=== PATIENT | female | born 1950 | race Caucasian/White ===

== ENCOUNTER 2018-04-25 18:10 | Inpatient (IN) ==
--- NOTE | 2018-04-25 19:06 | ED ---
HPI General Chief Complaint: Psychiatric Symptoms Stated Complaint: exparte/sherriff Time Seen by Provider: 04/25/18 18:33 History of Present Illness HPI Narrative: The patient was seen and examined in the presence of the nurse. This patient presents under a judges X forte act. She was sent here for psychiatric evaluation. She admits to being under a lot of stress but denies history of psychiatric problems and denies feeling suicidal. She denies any physical complaints or substance abuse issues. Symptom severity is mild. No alleviating factors. No exacerbating factors. Duration 3 weeks. She says her son has PTSD and he thought that maybe she had it but she denies having it. Related Data Home Medications Medication Instructions Recorded Confirmed No Known Home Medications 04/25/18 04/25/18 Allergies Allergy/AdvReac Type Severity Reaction Status Date / Time codeine Allergy Severe Difficulty Verified 04/25/18 18:33 Breathing erythromycin base Allergy Severe vomit Verified 04/25/18 18:33 ibuprofen Allergy Severe Joint Pain Verified 04/25/18 18:33 penicillin G Allergy Severe Rash Verified 04/25/18 18:33 ceflex Allergy Severe rash Uncoded 04/25/18 18:33 Review of Systems ROS: all other systems reviewed are negative PMFSH Medical History Medical History Patient denies medical problems (Acute) Surgical History Surgical History No history of previous surgery (Acute) Social History Social History Substance History: No History of Abuse Second Hand Smoke Exposure: No Smoking Status: Never smoker How Often Do You Have a Drink Containing Alcohol: Never Recent Travel in [facility] [[email or web address]] within the Last 8 Weeks: No Recent Out of Country Travel within the Last 8 Weeks: No Immunization History Tetanus Immunization: Unsure Exam Narrative Exam Narrative: GENERAL: Well-nourished, well-developed patient in no apparent distress. SKIN: Focused skin assessment reveals no rash and nodules. Skin is Warm and dry. HEAD: Atraumatic. Normocephalic. EYES: Pupils equal and round. No scleral icterus. No injection or drainage. ENT: No nasal bleeding or discharge. Mucous membranes pink and moist. NECK: Trachea midline. No JVD. CARDIOVASCULAR: Regular rate and rhythm. No murmur appreciated. RESPIRATORY: No accessory muscle use. Clear to auscultation. Breath sounds equal bilaterally. GASTROINTESTINAL: Abdomen soft, non-tender, nondistended. Hepatic and splenic margins not palpable. MUSCULOSKELETAL: No obvious deformities. No clubbing. No cyanosis. No edema. NEUROLOGICAL: Awake and alert. No obvious cranial nerve deficits. Motor grossly within normal limits. Normal speech. PSYCHIATRIC: Appropriate mood and affect; insight and judgment normal. Course Initial Documented Vital Signs Temperature 98.5 F 04/25/18 18:30 Pulse Rate 82 04/25/18 18:30 Respiratory Rate 18 04/25/18 18:30 Blood Pressure 176/79 H 04/25/18 18:30 Pulse Oximetry 99 04/25/18 18:30 Last Documented Vital Signs Temperature 98.5 F 04/25/18 18:30 Pulse Rate 82 04/25/18 18:30 Respiratory Rate 18 04/25/18 18:30 Blood Pressure 176/79 H 04/25/18 18:30 Pulse Oximetry 99 04/25/18 18:30 Medical Decision Making MDM Narrative Medical decision making narrative: 68-year-old female here for psychiatric evaluation under judges ex parte act. Denies physical problems. I have ordered medical clearance workup to include lab studies and alcohol intoxication. Psych screen has been ordered. Work appears negative. Patient is stable as can be made. Awaiting psychiatric evaluation for disposition. Medical Screen Exam Complete: Yes Emergency Medical Condition: Yes Lab Data Lab results reviewed: Yes I reviewed the patient's lab results. Lab results narrative: Labs are normal Result diagrams: 04/25/18 19:10 04/25/18 19:10 Lab Results 04/25/18 04/25/18 04/25/18 Range/Units 19:10 19:10 19:10 WBC 6.8 (4.0-11.0) th/mm3 RBC 4.95 (4.00-5.30) mil/mm3 Hgb 15.1 (11.6-15.3) gm/dL Hct 44.8 (35.0-46.0) % MCV 90.5 (80.0-100.0) fL MCH 30.5 (27.0-34.0) pg MCHC 33.7 (32.0-36.0) % RDW 13.9 (11.6-17.2) % Plt Count 260 (150-450) th/mm3 MPV 8.0 (7.0-11.0) fL Neut % (Auto) 48.2 (16.0-70.0) % Lymph % (Auto) 40.0 (9.0-44.0) % Fannin % (Auto) 7.5 (0.0-8.0) % Eos % (Auto) 3.4 (0.0-4.0) % Baso % (Auto) 0.9 (0.0-2.0) % Neut # (Auto) 3.3 (1.8-7.7) th/mm3 Lymph # (Auto) 2.7 (1.0-4.8) th/mm3 Fannin # (Auto) 0.5 (0.0-0.9) th/mm3 Eos # (Auto) 0.2 (0.0-0.4) th/mm3 Baso # (Auto) 0.1 (0.0-0.2) th/mm3 WBC Differential . Differential Comment Auto diff final Sodium 143 (136-145) meq/L Potassium 3.6 (3.5-5.1) meq/L Chloride 104 (98-107) meq/L Carbon Dioxide 31.8 (21.0-32.0) meq/L Anion Gap 7 (5-15) meq/L BUN 8 (7-18) mg/dL Creatinine 0.82 (0.50-1.00) mg/dL Estimated GFR 69 L (>89) mL/min Random Glucose 133 H (74-106) mg/dL Calcium 9.2 (8.5-10.1) mg/dL Total Bilirubin 0.2 (0.2-1.0) mg/dL AST 20 (15-37) U/L ALT 31 (10-53) U/L Alkaline Phosphatase 79 (45-117) U/L Total Protein 7.9 (6.4-8.2) g/dL Albumin 4.0 (3.4-5.0) g/dL TSH 2.380 (0.358-3.740) uIU/mL Urine Opiates Screen Neg (Neg) Ur Barbiturates Screen Neg (Neg) Ur Amphetamines Screen Neg (Neg) U Benzodiazepines Scrn Neg (Neg) Urine Cocaine Screen Neg (Neg) U Cannabinoids Screen Neg (Neg) Serum Alcohol Less than 3 (0-5) mg/dL Discharge Plan Discharge Disposition Patient Disposition: 30 Still Patient Discharge Details Diagnosis: Psychosis Physicians Team ED Provider: Cam Stewart Primary Care Provider: Primary Care Physici,No Rxs /Orders / Referrals /Forms Prescriptions: No Action No Known Home Medications RF: 0 Status ED Status: With Doctor
[2018-04-25 19:26] LABS: Baso # (Auto) 0.1 th/mm3 (0.0-0.2); Baso % (Auto) 0.9 % (0.0-2.0); Eos # (Auto) 0.2 th/mm3 (0.0-0.4); Eos % (Auto) 3.4 % (0.0-4.0); Hematocrit 44.8 % (35.0-46.0); Hemoglobin 15.1 gm/dL (11.6-15.3); Lymph # (Auto) 2.7 th/mm3 (1.0-4.8); Mean Corpuscular HGB Conc 33.7 % (32.0-36.0); Mean Corpuscular Hemoglobin 30.5 pg (27.0-34.0); Mean Corpuscular Volume 90.5 fL (80.0-100.0); Mono # (Auto) 0.5 th/mm3 (0.0-0.9); Mono % (Auto) 7.5 % (0.0-8.0); Neut # (Auto) 3.3 th/mm3 (1.8-7.7); Neut % (Auto) 48.2 % (16.0-70.0); Platelet Count 260 th/mm3 (150-450); Red Blood Count 4.95 mil/mm3 (4.00-5.30); Red Cell Distribution Width 13.9 % (11.6-17.2); White Blood Count 6.8 th/mm3 (4.0-11.0)
[2018-04-25 19:41] LABS: Amphetamine Screen,Urine Neg (Neg); Barbiturate Screen,Urine Neg (Neg); Cannabinoid Screen,Urine Neg (Neg); Cocaine Screen,Urine Neg (Neg)
[2018-04-25 19:42] LABS: Opiate Screen,Urine Neg (Neg)
[2018-04-25 20:03] LABS: Alanine Aminotransferase 31 U/L (10-53)
[2018-04-25 20:07] LABS: Anion Gap 7 meq/L (5-15); Aspartate Aminotransferase 20 U/L (15-37); Blood Urea Nitrogen 8 mg/dL (7-18); Calcium 9.2 mg/dL (8.5-10.1); Carbon Dioxide 31.8 meq/L (21.0-32.0); Chloride 104 meq/L (98-107); Glomerular Filtration Rate 69 mL/min (>89); Glucose,Random 133 mg/dL (74-106); Potassium 3.6 meq/L (3.5-5.1); Sodium 143 meq/L (136-145)
[2018-04-25 20:12] LABS: Alkaline Phosphatase 79 U/L (45-117); Total Protein 7.9 g/dL (6.4-8.2)
[2018-04-26] MEDS ORDERED: Acetaminophen 325 MG Tablet PO PRN (16:30)
[2018-04-26] MEDS ORDERED: Aluminum/Magnesium/Simethacone Susp 30 ML UDC PO PRN (16:30)
[2018-04-26] MEDS ORDERED: LORazepam 0.5 MG Tablet PO PRN (16:30)
[2018-04-26] MEDS ORDERED: Haloperidol Inj 5 MG/ML Ampul IM ONE (16:41)
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
--- NOTE | 2018-04-26 19:19 | CT ---
EXAM DATE: 04/26/2018 6:15 PM EST AGE/SEX: 68 years / Female INDICATIONS: Altered mental status. CLINICAL DATA: This is the patient's initial encounter. Patient reports that signs and symptoms have been present for 1 day and indicates a pain score of 0/10. MEDICAL/SURGICAL HISTORY: None. None. RADIATION DOSE: 56.35 CTDI (mGy) COMPARISON: No prior exams available for comparison. TECHNIQUE: CT of the head without contrast. Using automated exposure control and adjustment of the mA and/or kV according to patient size, radiation dose was kept as low as reasonably achievable to ob tain optimal diagnostic quality images. DICOM format image data is available electronically for revi ew and comparison. FINDINGS: Cerebrum: The ventricles are normal for age. No evidence of midline shift, mass lesion, hemorrhage or acute infarction. No extraaxial fluid collections are seen. Posterior Fossa: The cerebellum and brainstem are intact. The 4th ventricle is midline. The cerebe llopontine angle is unremarkable. Extracranial: The visualized portion of the orbits is intact. Skull: Subcutaneous oval smooth margin mass in the right lateral occipital region measuring 1.9 cm co ntaining some internal calcification. The calvaria is intact. No evidence of skull fracture. CONCLUSION: 1. No acute findings in the brain. 2. Smooth margin subcutaneous mass right occipital region with some internal calcification. . Electronically signed by: Francisco Macedo MD 04/26/2018 7:17 PM EST
[2018-04-26] MEDS ORDERED: Haloperidol Inj 5 MG/ML Ampul IM SCH (21:00)
[2018-04-26] MEDS: Haloperidol Inj 5 MG/ML Ampul IM SCH (22:32)
[2018-04-27 08:20] LABS: Carbon Dioxide 31.4 meq/L (21.0-32.0); Potassium 3.3 meq/L (3.5-5.1)
[2018-04-27 08:22] LABS: Chol/HDL Ratio 3.67 Ratio
[2018-04-27] MEDS: Haloperidol 1 MG Tablet PO SCH ×2 (09:01→20:38)
[2018-04-27] MEDS: Haloperidol Inj 5 MG/ML Ampul IM SCH ×2 (09:02→23:36)
[2018-04-27 16:32] LABS: Hemoglobin A1c 5.5 % (4.3-6.0)
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
[2018-04-28] MEDS: Haloperidol 1 MG Tablet PO SCH ×2 (08:36→20:14)
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
[2018-04-28] MEDS: Haloperidol Inj 5 MG/ML Ampul IM SCH ×2 (10:52→20:14)
--- NOTE | 2018-04-28 14:28 | ECG ---
Date Performed: 04/27/2018 Time Performed: 12:21:34 PTAGE: 68 years EKG: Sinus rhythm NORMAL ECG Since the PREVIOUS TRACING , no significant change noted PREVIOUS TRACIN08/05/2011 13.56 DOCTOR: Elissa Muñoz Interpretating Date/Time 04/28/2018 14:26:47
--- NOTE | 2018-04-28 14:58 | P.PNPSY ---
Subjective Remarks: Patient seen for follow-up, chart reviewed. Discussion with nursing staff reported that patient continues to be focused on the "rotation of her children" referring to her multiple children, denying any suicide ideations and has been compliant with medications. Patient was found eating lunch was able to interview with nurse and medical student. Patient reports having slept well this evening stating that the Benadryl has helped with some side effects and goes on to name various somatic complaints. She reports her mood is being "good " denying any perceptional services denies any "communication from the clouds" that she mentioned yesterday and states that has happened prior to her admission but not since being here. Ms. coronel continue to be noted to be internally preoccupied at times. Patient continues with bizarre and grandiose delusions. Review of Systems All other systems reviewed negative except as stated in HPI Mental Status Examination Appearance: Appropriate Consciousness: Alert Orientation: Person, Place (At least) Motor Activity: Other (No motor abnormalities noted) Speech: Unremarkable Language: Adequate Fund of Knowledge: Inadequate Attention and Concentration: Easily distracted Memory: Impaired (Psychosis interferes) Mood: Other ("Devastated") Affect: Blunt Thought Process & Associations: Disorganized (At times), Tangential Thought Content: Bizarre thinking, Hallucinations (Denies today), Delusional Hallucination Type: None Delusion Type: Bizarre, Paranoid Suicidal Ideation: No Suicidal Plan: No Suicidal Intention: No Homicidal Ideation: No Homicidal Plan: No Homicidal Intention: No Insight: Poor Judgment: Poor Assessment and Plan - Assessment (1) Unspecified psychosis Code(s): F29 - Unspecified psychosis not due to a substance or known physiological condition Status: Acute - Plan Plan: Patient continues with bizarre delusions of having multiple children as well as the grandiose and 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 We will continue to titrate Haldol to 5 mg p.o. twice daily for psychosis. Continue rest of medications. We will continue to monitor mood and behavior. Discharge planning in progress. Justification for Continued Inpatient Stay: At risk of further decompensation at lower level care.
[2018-04-28] MEDS: Haloperidol 5 MG Tablet PO SCH (21:18)
[2018-04-29] MEDS: Haloperidol 5 MG Tablet PO SCH ×2 (08:24→20:46)
[2018-04-29] MEDS: Haloperidol Inj 5 MG/ML Ampul IM SCH (08:28)
[2018-04-29] MEDS: Haloperidol 1 MG Tablet PO SCH (08:28)
--- NOTE | 2018-04-29 19:07 | P.PNPSY ---
Subjective Remarks: Reviewed electronic medical records and discussed case with staff. Follow-up was conducted in the patient's room with SAURABH Brown present. Her nurse reports she has been very somatic today complaining of knots in her back although the nurse was not able to feel anything. She has been compliant with her meds. She states that she is doing okay and slept well. She reports having a good appetite. She then states that she has "sharp pains in my back" and then points to her bilateral flank areas she states that she feels this is from the medication. She is somewhat perseverative on lowering her dosage of medication. I advised her she would have to take this up with Dr. Wheatley on Tuesday. 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 Mental Status Examination Appearance: Appropriate Consciousness: Alert Orientation: Person, Place (At least) Motor Activity: Other (No motor abnormalities noted) Speech: Unremarkable Language: Adequate Fund of Knowledge: Inadequate Attention and Concentration: Easily distracted Memory: Impaired (Psychosis interferes) Mood: Other ("Devastated") Affect: Blunt Thought Process & Associations: Disorganized (At times), Tangential Thought Content: Bizarre thinking, Hallucinations (Denies today), Delusional Hallucination Type: None Delusion Type: Bizarre, Paranoid Suicidal Ideation: No Suicidal Plan: No Suicidal Intention: No Homicidal Ideation: No Homicidal Plan: No Homicidal Intention: No Insight: Poor Judgment: Poor Assessment and Plan - Assessment (1) Schizophrenia, first episode, currently acute Code(s): F23 - Brief psychotic disorder Status: Acute - Plan Plan: Patient will be reevaluated by the attending psychiatrist. Continue with current treatment plan. Justification for Continued Inpatient Stay: Moving this patient to a less restrictive environment would likely result in decompensation.
[2018-04-30] MEDS: Haloperidol 5 MG Tablet PO SCH ×2 (08:50→20:35)
--- NOTE | 2018-04-30 11:32 | P.PNPSY ---
Subjective Remarks: Reviewed electronic record and discussed with nursing. Rounded with SAURABH Cantor. Patient is in the common area. She continues to complain of bilateral flank pain. She discussed this with the [employer] yesterday and stated that she needed all of her medications decreased. She denies any urinary symptoms. I have advised her to discuss this with Dr. Wheatley on Tuesday. 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 Review of Systems All other systems reviewed negative except as stated in HPI Mental Status Examination Appearance: Appropriate Consciousness: Alert Orientation: Person, Place (At least) Motor Activity: Other (No motor abnormalities noted) Speech: Unremarkable Language: Adequate Fund of Knowledge: Inadequate Attention and Concentration: Easily distracted Memory: Impaired (Psychosis interferes) Mood: Other ("Devastated") Affect: Blunt Thought Process & Associations: Disorganized (At times), Tangential Thought Content: Bizarre thinking, Hallucinations (Denies today), Delusional Hallucination Type: None Delusion Type: Bizarre, Paranoid Suicidal Ideation: No Suicidal Plan: No Suicidal Intention: No Homicidal Ideation: No Homicidal Plan: No Homicidal Intention: No Insight: Poor Judgment: Poor Assessment and Plan - Assessment (1) Psychosis Code(s): F29 - Unspecified psychosis not due to a substance or known physiological condition Status: Acute - Plan Plan: Patient will be reevaluated by the attending psychiatrist. Continue with current treatment plan. Justification for Continued Inpatient Stay: Moving patient to a less restrictive environment may result in her decompensation. (1) Psychosis Qualifiers: Psychosis type: unspecified psychosis type Qualified Code(s): F29 - Unspecified psychosis not due to a substance or known physiological condition
[2018-05-01] MEDS: Haloperidol 5 MG Tablet PO SCH ×2 (08:19→21:27)
--- NOTE | 2018-05-01 13:24 | P.TTN ---
- Patient Problems Problems: 1. Discharge planning 2. Medication compliance 3. Knowledge deficit 4. Lack of coping skills - Progress Toward Goals Provider Present: Dr. Nando Patel, Dr. Mika Wheatley Provider Input: 05/01: Pt has been delusional for years per son; she has been residing at a hotel and currently needs placement at an [facility] if she qualifies Nurse(s) Present: Yoana Nurse Input: 05/01: Pt remains delusional; no behavioral issues; compliant and cooperative Psychiatric Counselors Present: Richard Rahman Jr., [facility], Ana Luisa Luna, [facility] Group Spec/RT/OT/SAAVEDRA Present: QUENTIN [place], Mingo Rick, OT Group Spec/RT/OT/SAAVEDRA Input: 05/01: Pt attends and participates in select groups ; social with peers - Discharge Plan 05/01: Discharge planning in progress to an [facility] once stabilized if pt qualifies - Documentation Teaching Recipient: Patient
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
[2018-05-02] MEDS: Haloperidol 5 MG Tablet PO SCH (08:11)
--- NOTE | 2018-05-02 09:05 | P.PNPSY ---
Subjective Remarks: Patient states she is doing well. She was found in the common area well-dressed in street clothes. She states that a woman came to visit her yesterday and she hopes to move into a mobile home that the woman owns that is within her SSD means. She makes a point to attend all group sessions and fresh air time except for psychotherapy sessions. She attempted to call her son on Tuesday but believes his phone is not working. Review of Systems All other systems reviewed negative except as stated in HPI Psychiatric: Denies hearing things others do not hear, Denies seeing things others do not see Comments: Still having bizarre delusions Mental Status Examination Appearance: Appropriate Consciousness: Alert Orientation: Person, Place Motor Activity: Normal gait, Other (No motor abnormalities noted) Speech: Unremarkable Language: Adequate Fund of Knowledge: Inadequate Attention and Concentration: Easily distracted Memory: Impaired (Psychosis interferes) Mood: Good Affect: Blunt (More reactive) Thought Process & Associations: Disorganized (At times), Tangential Thought Content: Bizarre thinking, Delusional Hallucination Type: None Delusion Type: Bizarre Suicidal Ideation: No Suicidal Plan: No Suicidal Intention: No Homicidal Ideation: No Homicidal Plan: No Homicidal Intention: No Insight: Poor Judgment: Impulsive Assessment and Plan - Assessment (1) Psychosis Code(s): F29 - Unspecified psychosis not due to a substance or known physiological condition Status: Acute (2) Schizophrenia, first episode, currently acute Code(s): F23 - Brief psychotic disorder Status: Acute (3) Unspecified psychosis Code(s): F29 - Unspecified psychosis not due to a substance or known physiological condition Status: Acute - Plan Plan: Patient continues with delusions which may be fixed as described treatment continues to be present but less intense now. Patient will require a more structured environment with more support such as an assisted living facility but would prefer to live independently. Patient likely for discharge to a mobile home and is interested in social work assistance. Discharge planning in progress. (1) Psychosis Qualifiers: Qualified Code(s): F29 - Unspecified psychosis not due to a substance or known physiological condition
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
== END 2018-05-02 14:00 ==
LOC: NEPD 18:10 → NEDA 04-26 17:00 → H260 04-26 19:00 → NEDA 04-26 19:12
PROVIDERS: ADMIT Student in an Organized Health Care Education/Training Program; ATTEND Student in an Organized Health Care Education/Training Program